=== PATIENT | male | born 1945 | race Caucasian/White ===

== ENCOUNTER → 2016-11-10 12:32 | Outpatient (CLI) | payer BC ==
[2016-05-26 07:01] VITALS: BMI 24.4
[~2016-11-10 12:32] MED LIST: ASPIRIN81 MG PO; B-6; BENICAR HCT 40-1 TAB PO; CARTIA XT240 MG PO; COREG 3.1253.125 MG; COSOPT EYE DROPS5 ML EACH EYE; FOLIC ACID1 MG; FUROSEMIDE40 MG PO; HYDROCODONE-APA1 TAB PO; MOBIC7.5 MG; NORMODYNE / TR100 MG PO; PERCOCET 5-3251 TAB; PERCOCET 5-3251 TAB PO; PLAVIX75 MG PO; PRAVACHOL80 MG; STOOL SOFTENER100 M1 PO; WELLBUTRIN SR150 MG; XALATAN 0.0052.5 ML EACH EYE; ZANAFLEX4 MG; ZANTAC300 MG PO
== END | disposition home or self-care (01) ==
LOC: D.RAD 10:15
DX: J90 Pleural effusion, not elsewhere classified (principal)

== ENCOUNTER → 2016-11-28 13:14 | Outpatient (CLI) | payer BC ==
[2016-05-26 07:01] VITALS: BMI 24.4
== END | disposition home or self-care (01) ==
LOC: D.MRI 13:14
DX: R41.82 Altered mental status, unspecified (principal); R42 Dizziness and giddiness; R55 Syncope and collapse; R53.83 Other fatigue

== ENCOUNTER → 2017-06-08 13:26 | Outpatient (CLI) | payer MEDICARE, OTHER ==
[2016-05-26 07:01] VITALS: BMI 24.4
== END | disposition home or self-care (01) ==
LOC: D.RT 05-25 13:00 → D.RAD 05-25 13:00 → D.RT 13:26
DX: J44.9 Chronic obstructive pulmonary disease, unspecified (principal)

== ENCOUNTER → 2017-11-29 13:27 | Outpatient (CLI) | payer MEDICARE, OTHER ==
[2016-05-26 07:01] VITALS: BMI 24.4
== END | disposition home or self-care (01) ==
LOC: D.RT 13:27
DX: J45.909 Unspecified asthma, uncomplicated (principal)

== ENCOUNTER → 2017-12-18 13:16 | Outpatient (CLI) | payer MEDICARE, OTHER ==
[2016-05-26 07:01] VITALS: BMI 24.4
== END | disposition home or self-care (01) ==
LOC: D.CT 13:16
DX: J90 Pleural effusion, not elsewhere classified (principal)

== ENCOUNTER 2018-04-04 18:36 | Inpatient (IN) | payer MEDICARE, OTHER ==
[~2018-04-04] VITALS: Ht 188 cm; Wt 92.7 kg
--- NOTE | ~2018-04-04 | OP ---
PATIENT NAME: IOANA MARTINI MEDICAL RECORD: [id number] :41 LOCATION:D.[facility] ADMISSION DATE:04/04/18 SURGEON: LISA MCCARTHY MD DATE OF OPERATION: 04/05/2018 PREOPERATIVE DIAGNOSIS: Displaced femoral neck fracture of the right hip. POSTOPERATIVE DIAGNOSIS: Displaced femoral neck fracture of the right hip. PROCEDURE: Bipolar endoprosthesis of the right hip for displaced femoral neck fracture. SURGEON: Lisa Mccarthy MD ANESTHESIA: General. INTRAOPERATIVE COMPLICATIONS: None. IMPLANTS USED: [place] Anato stem size 6, 130 neck angle and V40 hip system, bipolar head size 54, femoral head size 26 x -3. ESTIMATED BLOOD LOSS: 300 cc. OPERATIVE SUMMARY IN DETAIL: After obtaining the appropriate preoperative orthopedic surgery consent as well as anesthetic consultation, evaluation and clearance, the patient was brought to the operating room, placed on the operating table in supine position. After general laryngeal mask administered, the patient was placed in left lateral decubitus position. All pressure points were well padded to include down leg peroneal pad as well as axillary roll. The patient was held firmly to the operating table using the vacuum pack suction system. Right lower extremity and hip were then prepped and draped in routine sterile fashion. A curvilinear incision was made over the greater trochanter, taken down to the level of the IT band. The IT band was split in line with the fibers of the IT band to reveal gluteus medius and minimus. The patient had very robust gluteus medius. The inferior third of this was taken down and reflected anteriorly and saved for later reapproximation. The gluteus medius was treated likewise, hip capsule was split in a T-type fashion. Fracture hematoma was evacuated. Femoral neck cut was made using the Anato system femoral neck cutting guide. At this point, the very large femoral head was extracted from the acetabulum and all fragments were removed from the acetabulum with irrigation as well as manual examination. Attention was turned to the proximal femur. Serial and sequential reaming and broaching were done for the size 6 Anato hip stem, which was tamped into place. Trials were undertaken. It was felt that the -3 inner diameter is most appropriate. The -3 was articulated with the 45 bipolar head. This was then placed on the Gimenez taper tamped into place. The hip was reduced, taken through range of motion and found to be stable in all planes. Intraoperative radiograph showed good position and placement of all components without evidence of fracture and good leg length adventist. Wound was then copiously irrigated at this multiple points. Hip capsule was closed with #2 Ethibond. This was followed by #5 reapproximation of gluteus medius and minimus back to the greater trochanter in a transosseous fashion. Having completed this, the IT band was closed with #5 Ethibond followed by #1 Vicryl and skin carley. Sterile dressing was applied. The patient was awakened and taken to recovery room in stable condition. All final needle and sponge counts were correct. OPERATIVE REPORT [id number] IOANA MARTINI TRANSINT:[id number] Voice Confirmation ID: [id number] DOCUMENT ID: [id number] SHARI DONNELLY, LISA BARRIOS at 2042 CC: [id number] DICTATION DATE: 04/06/18 1403 FINANCE SPECIALIST: 04/06/18 1447 ADM IN [facility] [address] [place] [address]
[2018-04-04] MEDS ORDERED: AZOPT 1% OPHT D10 ML EACH EYE (19:01)
[2018-04-04] MEDS ORDERED: LEXAPRO20 MG (19:01)
[2018-04-04] MEDS ORDERED: XALATAN 0.0052.5 ML EACH EYE (19:02)
[2018-04-04] MEDS ORDERED: REGLAN10 MG (19:03)
[2018-04-04] MEDS ORDERED: OXYCONTIN15 MG PO (19:03)
[2018-04-04] MEDS ORDERED: SINGULAIR10 MG PO (19:03)
[2018-04-04] MEDS ORDERED: K-DUR20 MEQ PO (19:04)
[2018-04-04 20:12] LABS: BASOPHILS 0.3 % (0-2); EOSINOPHILS 2.4 % (0-7); HEMATOCRIT 38.4 % (42.0-54.0); HEMOGLOBIN 12.7 g/dL (13.5-17.5); IMMATURE GRANULOCYTES 0.3 % (0-5); LYMPHOCYTES 23.5 % (15-50); MCH 29.5 pg (26.0-34.0); MCHC 33.1 g/dL (31.0-37.0); MCV 89.1 fL (80.0-100.0); MEAN PLATELET VOLUME 10.3 fL (7.4-10.4); MONOCYTES 9.5 % (2-11); PLATELET COUNT 257 10x3/uL (130-400); RBC 4.31 10x6/uL (4.20-6.10); RDW 13.9 % (11.5-14.5); WBC 7.6 10x3/uL (4.8-10.8)
[2018-04-04 20:39] LABS: ALBUMIN 3.5 g/dL (3.4-5.0); ALKALINE PHOSPHATASE 84 U/L (46-116); ALT (SGPT) 18 U/L (10-68); BILIRUBIN - TOTAL 0.31 mg/dL (0.2-1.3); CALC OSMOLALITY 280 mosm/kg (275-300); CALCIUM 8.6 mg/dL (8.5-10.1); CARBON DIOXIDE 30.1 mmol/L (21.0-32.0); CHLORIDE - SERUM 103 mmol/L (98-107); CREATININE - SERUM 1.8 mg/dL (0.6-1.3); GLUCOSE 95 mg/dL (74-106); POTASSIUM - SERUM 3.9 mmol/L (3.5-5.1); PROTEIN - SERUM 7.6 g/dL (6.4-8.2); SODIUM 139 mmol/L (136-145); UREA NITROGEN 20 mg/dL (7-18); eGFR NON AFRICAN AMERICAN 39 mL/min (90-120)
[2018-04-04 20:46] LABS: CKMB 1.1 U/L (0.0-3.6)
[2018-04-04 20:48] LABS: TROPONIN-I < 0.017 ng/mL (0.000-0.060)
[2018-04-04 21:30] VITALS: BP 178/99
[2018-04-04 21:43] LABS: APTT 30.8 SECONDS (22.8-39.4); INR 1.07 (0.85-1.17); PROTIME 13.5 SECONDS (11.6-15.0)
[2018-04-04 21:44] LABS: APPEARANCE CLEAR (CLEAR); BILIRUBIN NEGATIVE (NEGATIVE); COLOR YELLOW (YELLOW); GLUCOSE NEGATIVE (NEGATIVE); KETONE NEGATIVE (NEGATIVE); NITRITE NEGATIVE (NEGATIVE); PROTEIN NEGATIVE (NEGATIVE); UROBILINOGEN NORMAL (NORMAL)
[2018-04-04 21:45] LABS: WHITE CELLS - URINE 0-5 /hpf (0-5)
[2018-04-04 21:46] LABS: BACTERIA FEW /hpf (NONE SEEN)
[2018-04-04 22:00] VITALS: BP 177/95
[2018-04-04 23:00] VITALS: BP 178/91
[2018-04-05 00:46] VITALS: BP 155/104; BMI 26.2
[2018-04-05 04:00] VITALS: BP 171/99
[2018-04-05 06:55] LABS: BASOPHILS 0.1 % (0-2); EOSINOPHILS 0.9 % (0-7); HEMATOCRIT 38.8 % (42.0-54.0); HEMOGLOBIN 12.7 g/dL (13.5-17.5); IMMATURE GRANULOCYTES 0.1 % (0-5); LYMPHOCYTES 10.5 % (15-50); MCH 29.3 pg (26.0-34.0); MCHC 32.7 g/dL (31.0-37.0); MCV 89.4 fL (80.0-100.0); MEAN PLATELET VOLUME 9.6 fL (7.4-10.4); MONOCYTES 10.1 % (2-11); NEUTROPHILS 78.3 % (40-80); RBC 4.34 10x6/uL (4.20-6.10); RDW 13.9 % (11.5-14.5)
[2018-04-05 07:05] LABS: ANION GAP 11.2 mmol/L (8-16); CALCIUM 8.4 mg/dL (8.5-10.1); CARBON DIOXIDE 28.5 mmol/L (21.0-32.0); CREATININE - SERUM 1.5 mg/dL (0.6-1.3); POTASSIUM - SERUM 3.7 mmol/L (3.5-5.1)
[2018-04-05 07:06] LABS: INR 1.05 (0.85-1.17); PROTIME 13.3 SECONDS (11.6-15.0)
[2018-04-05 07:08] LABS: PLATELET COUNT 204 10x3/uL (130-400); WBC 9.9 10x3/uL (4.8-10.8)
[2018-04-05 08:27] VITALS: Ht 188 cm; Wt 92.7 kg
[2018-04-05 09:08] VITALS: BP 187/103
[2018-04-05 12:26] VITALS: BP 187/111
[2018-04-05 19:19] VITALS: BP 168/98
[2018-04-05 20:00] VITALS: BP 142/80; BP 142/90
[2018-04-06] VITALS: BP 140/80; BP 142/76
[2018-04-06 04:00] VITALS: BP 125/72
[2018-04-06 06:39] LABS: HEMATOCRIT 32.9 % (42.0-54.0); HEMOGLOBIN 10.7 g/dL (13.5-17.5); MCH 28.9 pg (26.0-34.0); MCHC 32.5 g/dL (31.0-37.0); MCV 88.9 fL (80.0-100.0); MEAN PLATELET VOLUME 10.3 fL (7.4-10.4); RBC 3.7 10x6/uL (4.20-6.10); RDW 14.2 % (11.5-14.5)
[2018-04-06 09:03] VITALS: BP 125/83
[2018-04-06 09:49] LABS: ANION GAP 16.8 mmol/L (8-16); CALCIUM 7.8 mg/dL (8.5-10.1); CARBON DIOXIDE 21.8 mmol/L (21.0-32.0); CREATININE - SERUM 1.7 mg/dL (0.6-1.3); POTASSIUM - SERUM 3.6 mmol/L (3.5-5.1)
[2018-04-06 12:55] VITALS: BP 139/86
[2018-04-06 20:00] VITALS: BP 149/86
[2018-04-07 04:00] VITALS: BP 138/82
[2018-04-07 05:47] LABS: HEMATOCRIT 26.5 % (42.0-54.0); HEMOGLOBIN 8.6 g/dL (13.5-17.5); MCH 28.8 pg (26.0-34.0); MCHC 32.5 g/dL (31.0-37.0); MCV 88.6 fL (80.0-100.0); MEAN PLATELET VOLUME 10.4 fL (7.4-10.4); RBC 2.99 10x6/uL (4.20-6.10); RDW 14.4 % (11.5-14.5); WBC 7.4 10x3/uL (4.8-10.8)
[2018-04-07 06:51] VITALS: BP 123/66
[2018-04-07 20:00] VITALS: BP 150/73
[2018-04-08] VITALS: BP 147/74
[2018-04-08 04:00] VITALS: BP 141/74
[2018-04-08 11:28] VITALS: BP 156/84
[2018-04-08 15:43] VITALS: BP 128/69
[2018-04-08 21:04] VITALS: BP 152/81
[2018-04-09 04:00] VITALS: BP 153/85
[2018-04-09] MEDS ORDERED: ELIQUIS2.5 MG PO (08:06)
[2018-04-09] MEDS ORDERED: HYDROCODON-ACE1 EAC7 PO (08:07)
[2018-04-09 08:57] VITALS: BP 165/90
[2018-04-09 13:24] VITALS: BP 198/64
== END 2018-04-09 15:24 | DRG 470 ==
LOC: D.ER 18:36 → D.EDHOLD 21:53 → D.MS 21:53
PROVIDERS: Family Medicine; Orthopaedic Surgery
PROC: 0SRR0JZ Replacement of Right Hip Joint, Femoral Surface with Synthetic Substitute, Open Approach (ICD-10-PCS; principal; 2018-04-05 15:15)
DX: S72.051A Unspecified fracture of head of right femur, initial encounter for closed fracture (principal); I38 Endocarditis, valve unspecified; D62 Acute posthemorrhagic anemia; W19.XXXA Unspecified fall, initial encounter; I10 Essential (primary) hypertension; F32.9 Major depressive disorder, single episode, unspecified; F41.9 Anxiety disorder, unspecified; G89.29 Other chronic pain; G20 Parkinson's disease; I71.4 Abdominal aortic aneurysm, without rupture

== ENCOUNTER 2018-04-09 12:34 | Inpatient (IN) | payer MEDICARE, OTHER ==
[~2018-04-09] VITALS: Ht 182.9 cm; Wt 92.5 kg
--- NOTE | ~2018-04-09 | RHP ---
PATIENT: IOANA MARTINI MEDICAL RECORD: [id number] ACCOUNT: [id number] LOCATION:[facility]1112 : 43 ADMISSION DATE: 04/09/18 REHABILITATION HISTORY AND PHYSICAL EXAMINATION POST ADMISSION PHYSICIAN EXAMINATION DATE OF ADMISSION: 04/09/2018 ADMITTING DIAGNOSIS: Bipolar arthroplasty of the right hip for displaced femoral neck fracture. HISTORY OF PRESENT ILLNESS: The patient was admitted to inpatient rehab status post bipolar arthroplasty of the right hip for displaced femoral neck fracture. He is a 73-year-old gentleman of Dr. Castro who sees him for chronic pain therapy. The patient's reports the patient spends all day every day sleeping due to oversedation or analgesia therapy as a result of low back injury and fallen out of a deer stand. He definitely will require medical management during his stay for his pain. The patient was brought to the ER after a fall and subsequent right femoral neck fracture, was in need of surgery and cardiology was consulted for clearance prior to surgery. PAST MEDICAL HISTORY: He has got a past medical history of hypertension, AAA, history of coronary bypass grafting, depression, anxiety, renal failure, prostate cancer, arthritis. His echo last month revealed a left ventricular hypertrophy with preservation of his EF. His last intervention was in November 2015. He denies any anginal symptoms. His primary complaint is right hip pain. The patient reported he tripped and fell out of the porch while he was watering his plants. The patient's reported no loss of consciousness prior to the fall. He was completely independent with ADLs and mobility. He is currently total assist with ambulation, walking only 6 feet with a rolling walker, is mod to max assist to stand with barriers to include a need for DME and home health at discharge, mod to max assist for ADLs and will require intensive therapies to return to his home as close to his prior level of functioning as possible. He will require medical management from a physician to actively treat comorbidities including his pain during his stay. He is also requiring some O2 and will need to titrate that down on him and also telemetry will be provided during his stay. COMORBIDITIES: In this patient include coronary artery disease with a history of left bundle-branch block, valvular heart disease, hypertension, Parkinson's, depression, anxiety, renal failure, and prostate cancer. PAST MEDICAL HISTORY: Significant for hypertension, aneurysm to his aorta, bilateral pleural effusions, prostate cancer, skin cancer, depression, anxiety, stage III renal failure, arthritis, and chronic back pain. PAST SURGICAL HISTORY: Includes prostate surgery, coronary artery bypass grafting, back surgery, hernia repair, and stents and angioplasty. ALLERGIES: KEFLEX AND ZITHROMAX. CURRENT MEDICATIONS: Include Lexapro 10 mg daily, Pepcid 40 mg daily, Lasix 40 mg daily, diltiazem 240 mg daily, Pravachol 40 mg daily. He is on potassium 20 HISTORY AND PHYSICAL [id number] LIANET,IOANA E mEq b.i.d., OxyContin 10 mg b.i.d., Singulair 10 mg at bedtime, metoclopramide 10 mg b.i.d. and q.a.c. He is on Xalatan eye drops, labetalol 100 mg b.i.d., [place] 1 tab q. 4 hours p.r.n., Trusopt eyedrops t.i.d., and Eliquis 2.5 mg b.i.d. HABITS: No current alcohol or tobacco use. FAMILY HISTORY: Noncontributory. SOCIAL HISTORY: The patient hopes to return back home with his and get back to his prior level of functioning. REVIEW OF SYSTEMS: GENERAL: Does complain of weakness and fatigue. HEENT: Denies cold, cough, or congestion. CARDIOVASCULAR: He denies chest pain. PHYSICAL EXAMINATION: VITAL SIGNS: Stable, afebrile. GENERAL: A well-developed gentleman in no acute distress, alert upon exam. HEENT: Normocephalic and atraumatic. Mucosa moist. NECK: Supple. No lymphadenopathy. LUNGS: Clear at this time. HEART: Irregular rate and rhythm. ABDOMEN: Benign. EXTREMITIES: No clubbing, cyanosis or edema. His postop swelling appears normal. NEUROLOGIC: Does have noted weakness. LABORATORY DATA: His white count is 7.2, H&H 8 and 24 and platelet count is 212. Sodium 139, potassium 3.1, BUN and creatinine of 16 and 1.2, and blood sugar is noted to be 94. ASSESSMENT: This is a 73-year-old gentleman admitted to rehab with a working diagnosis of bipolar arthroplasty of the right hip secondary to a displaced femoral neck fracture. The patient has potential to make improvement. We instituted the following multidisciplinary therapies including but not limited to physical, occupational, respiratory, speech, nutritional services, prosthetics, and orthotics. Given his complex medical condition and risk for more complications, rehabilitation services cannot be provided at a low level of care such as a skilled nurse facility. PLAN: 1. Admit to [facility] rehab for inpatient therapy to include the following disciplines: A. Physical therapy to improve gait, all transfer skills and bed mobility to a modified independent level. B. Occupational therapy to a modified independent level. C. Case management to assist with discharge planning and placement options. D. Nutrition to assist with nutritional needs. E. Rehabilitation nursing to assist in monitoring the patient's underlying medical conditions and to assist with any type of bowel or bladder management. 2. The patient's current medication and medical care will be continued. HISTORY AND PHYSICAL [id number] IOANA MARTINI 3. The patient will be placed on standard fall precautions. 4. The patient's estimated length of stay is approximately 7-10 days. 5. We will go ahead and replace his potassium today. 6. I am going to go ahead and transfuse him. 7. We will manage his pain management during his stay, I am going to follow up in the a.m. and discuss with the care team on Monday. TRANSINT:[id number] Voice Confirmation ID: [id number] DOCUMENT ID: [id number] AGUSTIN notes whether there has been none or any medical/functional change since admission: - No change since preadmission screen. AGUSTIN attests patient continues to be appropriate for IRF: - Continues to be appropriate. FAINA SOTELO MD at 1845 CC: [id number] DICTATION DATE: 04/10/18 0807 MOLECULAR PATHOLOGIST: 04/10/18 0933 ADM IN [facility] [address] [place] [id number]
[~2018-04-09 12:34] MED LIST changes: +AZOPT 1% OPHT D10 ML EACH EYE; +ELIQUIS2.5 MG PO; +HYDROCODON-ACE1 EAC7 PO; +K-DUR20 MEQ PO; +LEXAPRO20 MG; +OXYCONTIN15 MG PO; +REGLAN10 MG; +SINGULAIR10 MG PO
[2018-04-09 16:19] VITALS: BP 156/85
[2018-04-09 18:00] VITALS: BP 156/85
[2018-04-10 07:06] LABS: CALCIUM 8.1 mg/dL (8.5-10.1); CARBON DIOXIDE 32.1 mmol/L (21.0-32.0); CREATININE - SERUM 1.2 mg/dL (0.6-1.3); POTASSIUM - SERUM 3.1 mmol/L (3.5-5.1)
[2018-04-10 07:09] LABS: BASOPHILS 0.1 % (0-2); EOSINOPHILS 4.4 % (0-7); HEMATOCRIT 24.5 % (42.0-54.0); HEMOGLOBIN 8.1 g/dL (13.5-17.5); IMMATURE GRANULOCYTES 0.1 % (0-5); LYMPHOCYTES 18.7 % (15-50); MCHC 33.1 g/dL (31.0-37.0); MCV 87.8 fL (80.0-100.0); MEAN PLATELET VOLUME 10.3 fL (7.4-10.4); MONOCYTES 13.7 % (2-11); RBC 2.79 10x6/uL (4.20-6.10); RDW 13.9 % (11.5-14.5); WBC 7.2 10x3/uL (4.8-10.8)
[2018-04-10 07:10] LABS: PLATELET COUNT 212 10x3/uL (130-400)
[2018-04-10 07:47] VITALS: BP 190/96
[2018-04-10 13:14] VITALS: BMI 27.6
[2018-04-10 18:24] VITALS: Ht 182.9 cm; Wt 92.5 kg
[2018-04-10 19:00] VITALS: BP 134/84
[2018-04-11 06:57] LABS: BASOPHILS 0.2 % (0-2); EOSINOPHILS 3.1 % (0-7); HEMATOCRIT 27.9 % (42.0-54.0); HEMOGLOBIN 9.4 g/dL (13.5-17.5); IMMATURE GRANULOCYTES 0.5 % (0-5); LYMPHOCYTES 23.6 % (15-50); MCH 28.9 pg (26.0-34.0); MCHC 33.7 g/dL (31.0-37.0); MEAN PLATELET VOLUME 10.5 fL (7.4-10.4); MONOCYTES 10.4 % (2-11); NEUTROPHILS 62.2 % (40-80); PLATELET COUNT 249 10x3/uL (130-400); RBC 3.25 10x6/uL (4.20-6.10); RDW 14.3 % (11.5-14.5)
[2018-04-11 07:12] LABS: MCV 85.8 fL (80.0-100.0); WBC 9.5 10x3/uL (4.8-10.8)
[2018-04-11 07:15] LABS: CALCIUM 8.3 mg/dL (8.5-10.1); CARBON DIOXIDE 30.1 mmol/L (21.0-32.0); CREATININE - SERUM 1.3 mg/dL (0.6-1.3); POTASSIUM - SERUM 3.1 mmol/L (3.5-5.1)
[2018-04-11 07:49] VITALS: BP 165/94
[2018-04-11 19:00] VITALS: BP 155/87
[2018-04-12 08:00] VITALS: BP 141/87
[2018-04-12 19:00] VITALS: BP 137/68
[2018-04-13 06:01] LABS: ANION GAP 8.3 mmol/L (8-16); CALCIUM 8.2 mg/dL (8.5-10.1); CARBON DIOXIDE 31.4 mmol/L (21.0-32.0); CREATININE - SERUM 1.4 mg/dL (0.6-1.3)
[2018-04-13 06:04] LABS: HEMATOCRIT 27.5 % (42.0-54.0); HEMOGLOBIN 9.3 g/dL (13.5-17.5); LYMPHOCYTES 19.1 % (15-50); MCH 29.4 pg (26.0-34.0); MCHC 33.8 g/dL (31.0-37.0); MEAN PLATELET VOLUME 9.4 fL (7.4-10.4); NEUTROPHILS 66.7 % (40-80); PLATELET COUNT 307 10x3/uL (130-400); POTASSIUM - SERUM 3.7 mmol/L (3.5-5.1); RBC 3.16 10x6/uL (4.20-6.10); RDW 14.6 % (11.5-14.5); WBC 8.8 10x3/uL (4.8-10.8)
[2018-04-13 08:00] VITALS: BP 154/87
[2018-04-13 19:00] VITALS: BP 161/84
[2018-04-14 07:25] VITALS: BP 162/81
[2018-04-15 07:10] VITALS: BP 165/84
[2018-04-15 19:21] VITALS: BP 162/86
[2018-04-16 05:47] LABS: BASOPHILS 0.3 % (0-2); EOSINOPHILS 4.6 % (0-7); HEMATOCRIT 31.4 % (42.0-54.0); HEMOGLOBIN 10.1 g/dL (13.5-17.5); IMMATURE GRANULOCYTES 0.9 % (0-5); LYMPHOCYTES 15.1 % (15-50); MCH 28.9 pg (26.0-34.0); MCHC 32.2 g/dL (31.0-37.0); MEAN PLATELET VOLUME 9.9 fL (7.4-10.4); MONOCYTES 8.3 % (2-11); NEUTROPHILS 70.8 % (40-80); PLATELET COUNT 251 10x3/uL (130-400); RBC 3.49 10x6/uL (4.20-6.10); RDW 14.8 % (11.5-14.5); WBC 10.1 10x3/uL (4.8-10.8)
[2018-04-16 05:49] LABS: ANION GAP 12.5 mmol/L (8-16); CALCIUM 8.6 mg/dL (8.5-10.1); CARBON DIOXIDE 29.2 mmol/L (21.0-32.0); CREATININE - SERUM 1.4 mg/dL (0.6-1.3); POTASSIUM - SERUM 3.7 mmol/L (3.5-5.1)
[2018-04-16 07:51] VITALS: BP 174/95
[2018-04-16 19:06] VITALS: BP 129/67
[2018-04-17 07:45] VITALS: BP 156/88
[2018-04-17 19:00] VITALS: BP 134/79
[2018-04-18 07:07] LABS: BASOPHILS 0.4 % (0-2); EOSINOPHILS 5.6 % (0-7); HEMOGLOBIN 9.7 g/dL (13.5-17.5); IMMATURE GRANULOCYTES 0.2 % (0-5); LYMPHOCYTES 20.5 % (15-50); MCH 28.9 pg (26.0-34.0); MCHC 32.3 g/dL (31.0-37.0); MCV 89.3 fL (80.0-100.0); MEAN PLATELET VOLUME 9.3 fL (7.4-10.4); MONOCYTES 9.3 % (2-11); RBC 3.36 10x6/uL (4.20-6.10); RDW 14.7 % (11.5-14.5); WBC 8.2 10x3/uL (4.8-10.8)
[2018-04-18 07:14] LABS: PLATELET COUNT 397 10x3/uL (130-400)
[2018-04-18 07:21] LABS: ANION GAP 9.6 mmol/L (8-16); CALCIUM 8.3 mg/dL (8.5-10.1); CARBON DIOXIDE 30.8 mmol/L (21.0-32.0); CREATININE - SERUM 1.5 mg/dL (0.6-1.3); POTASSIUM - SERUM 3.4 mmol/L (3.5-5.1)
[2018-04-18 07:51] VITALS: BP 146/85
[2018-04-18 20:59] VITALS: BP 155/89
[2018-04-19 08:24] VITALS: BP 158/99
[2018-04-19 19:00] VITALS: BP 156/85
[2018-04-20 07:05] LABS: HEMATOCRIT 30.8 % (42.0-54.0); HEMOGLOBIN 10.3 g/dL (13.5-17.5); LYMPHOCYTES 18.1 % (15-50); MCH 29.6 pg (26.0-34.0); MCHC 33.4 g/dL (31.0-37.0); MCV 88.5 fL (80.0-100.0); MEAN PLATELET VOLUME 8.6 fL (7.4-10.4); PLATELET COUNT 466 10x3/uL (130-400); RBC 3.48 10x6/uL (4.20-6.10); RDW 14.1 % (11.5-14.5); WBC 7.4 10x3/uL (4.8-10.8)
[2018-04-20 07:14] LABS: ANION GAP 10.4 mmol/L (8-16); CALCIUM 8.6 mg/dL (8.5-10.1); CARBON DIOXIDE 27.9 mmol/L (21.0-32.0); CREATININE - SERUM 1.3 mg/dL (0.6-1.3); POTASSIUM - SERUM 3.3 mmol/L (3.5-5.1)
[2018-04-20 08:00] VITALS: BP 172/93
[2018-04-20 19:00] VITALS: BP 169/90
[2018-04-21 11:22] VITALS: BP 144/97
[2018-04-21 21:37] VITALS: BP 159/95
[2018-04-22 15:53] VITALS: BP 180/107
[2018-04-22 20:06] VITALS: BP 149/88
[2018-04-23 07:48] VITALS: BP 151/63
[2018-04-23 07:52] VITALS: BP 167/95
[2018-04-23 19:00] VITALS: BP 155/93
[2018-04-24 08:57] VITALS: BP 170/98
[2018-04-24] MEDS ORDERED: POTASSIUM CHLO10 ME1 (14:33)
[2018-04-24] MEDS ORDERED: COLACE100 MG PO (14:35)
[2018-04-24] MEDS ORDERED: PEPCID40 MG PO (14:35)
[2018-04-24] MEDS ORDERED: ROBITUSSIN DM 110 ML PO (14:36)
[2018-04-24] MEDS ORDERED: ORA RELIEF177 ML PO (14:36)
[2018-04-24 18:07] VITALS: BP 145/90
[2018-04-24 19:00] VITALS: BP 145/90
== END 2018-04-24 21:39 | disposition home health service (06) | DRG 561 ==
LOC: D.REHAB 12:34
PROVIDERS: Emergency Medicine
DX: S72.001D Fracture of unspecified part of neck of right femur, subsequent encounter for closed fracture with routine healing (principal); Z47.1 Aftercare following joint replacement surgery; Z96.641 Presence of right artificial hip joint; I25.10 Atherosclerotic heart disease of native coronary artery without angina pectoris; I12.9 Hypertensive chronic kidney disease with stage 1 through stage 4 chronic kidney disease, or unspecified chronic kidney disease; N18.3 Chronic kidney disease, stage 3 (moderate); G20 Parkinson's disease; F41.8 Other specified anxiety disorders; C61 Malignant neoplasm of prostate; W17.89XD Other fall from one level to another, subsequent encounter

== ENCOUNTER 2018-04-24 21:40 | Inpatient (IN) | payer MEDICARE, OTHER ==
[~2018-04-24] VITALS: Ht 188 cm; Wt 92.5 kg
--- NOTE | ~2018-04-24 | CN ---
PATIENT NAME:IOANA MARTINI MEDICAL RECORD: [id number] : 41 LOCATION:D.[facility] ADMIT DATE: 04/24/18 ACCOUNT: [id number] CONSULTING PHYSICIAN: NAKITA ESQUIVEL MD REFERRING PHYSICIAN: LISA MCCARTHY MD DATE OF CONSULTATION: 04/25/2018 DATE OF ADMISSION: 04/25/2018 Medical Management This is a consultation from Dr. Mccarthy for medical management. HISTORY OF PRESENT ILLNESS: This is a 73-year-old white male who underwent right bipolar endoprosthesis for a right hip fracture on 04/05/2018. He was discharged to rehab. In the rehabilitation, he started having dark red/brown drainage from the surgical wound and he was discharged from rehab and admitted to inpatient for IV antibiotics and probable I&D. This patient is followed by Dr. Lopes for his medical problems. PAST MEDICAL HISTORY: He has a history of hypertension, coronary artery disease, aortic aneurysm, prostate cancer, skin cancer, reflux, depression, anxiety, parkinsonism, and glaucoma. PAST SURGICAL HISTORY: Prostate surgery, coronary artery bypass surgery, lumbar surgery, hernia repair, right bipolar endoprosthesis for right hip fracture last month. ALLERGIES: ZITHROMAX. FAMILY HISTORY: Unknown. HABITS: He is a former tobacco user. No alcohol or drugs. CURRENT MEDICATIONS: Eliquis 2.5 mg twice a day, diltiazem XT 240 mg once a day, labetalol 100 mg twice a day, pravastatin 80 mg once a day, Lexapro 20 mg once a day, [place] 5/325 q.4 hours p.r.n. pain, OxyContin 15 mg 1 p.o. q.12 hours, Lasix 40 mg a day, potassium 30 mEq 3 times a day, Robitussin DM p.r.n. cough, Azopt 1% ophthalmic drops 1 drop in each eye 3 times a day, Xalatan 0.005% ophthalmic drops 1 drop each eye at bedtime, Colace 100 mg twice a day, Pepcid 40 mg twice a day, Reglan 10 mg twice a day, Zantac 300 mg daily. PHYSICAL EXAMINATION: Today: VITAL SIGNS: Temperature 99.1, pulse 92, respirations 19, blood pressure 128/84, O2 sat 94%. GENERAL: He is awake, drowsy, does not appear in distress. HEENT: Unremarkable. NECK: Supple. HEART: Regular rate and rhythm. LUNGS: Fairly clear. ABDOMEN: Soft. EXTREMITIES: Examination of the right hip area; dressings in place. He has had some drainage from it. Otherwise no edema. LABORATORY DATA: Today urinalysis shows trace protein, 1+ blood, positive CONSULT REPORT [id number] LIANETIOANA nitrite, 2+ leukocyte esterase, 25-50 white blood cells, few bacteria. CBC with a white count 7800, hemoglobin 10.8, hematocrit 33.8, sodium 139, potassium 3.3, chloride 104, CO2 25.3, BUN 26, creatinine 1.4, glucose 88, calcium 8.5, sed rate last night is elevated at 50. C-reactive protein 2.9. X-ray of the right hip shows postsurgical changes. No acute osseous abnormality. ASSESSMENT: 1. Hypertension. 2. Heart disease. 3. Hematoma of the hip. PLAN: Antibiotics have been started. Cultures have been obtained. N.p.o. after midnight for possible surgery in the morning. The patient has been taken off Eliquis and is on heparin for deep venous thrombosis prophylaxis. I will monitor his blood pressure and other medical problems. Other tests and procedures as warranted. TRANSINT:[id number] Voice Confirmation ID: [id number] DOCUMENT ID: [id number] NAKITA ESQUIVEL MD at 0814 CC: [id number] DICTATION DATE: 04/25/182326 BRIEF WRITER: 04/26/18 0154 ADM IN [address] [id number] [place] [address]
[~2018-04-24 21:40] MED LIST changes: +COLACE100 MG PO; +ORA RELIEF177 ML PO; +PEPCID40 MG PO; +POTASSIUM CHLO10 ME1; +ROBITUSSIN DM 110 ML PO
[2018-04-25 00:16] LABS: HEMATOCRIT 31.1 % (42.0-54.0); HEMOGLOBIN 10.2 g/dL (13.5-17.5); MCH 28.9 pg (26.0-34.0); MCHC 32.8 g/dL (31.0-37.0); MCV 88.1 fL (80.0-100.0); MEAN PLATELET VOLUME 8.8 fL (7.4-10.4); PLATELET COUNT 475 10x3/uL (130-400); RBC 3.53 10x6/uL (4.20-6.10); RDW 14.2 % (11.5-14.5); WBC 7.2 10x3/uL (4.8-10.8)
[2018-04-25 00:21] LABS: C-REACTIVE PROTEIN 2.9 mg/dL (0.0-0.9); CALCIUM 8.1 mg/dL (8.5-10.1); CARBON DIOXIDE 27.9 mmol/L (21.0-32.0); CREATININE - SERUM 1.3 mg/dL (0.6-1.3); POTASSIUM - SERUM 3.9 mmol/L (3.5-5.1)
[2018-04-25 00:44] LABS: BASOPHILS 1 % (0-2); EOSINOPHILS 4 % (0-7); LYMPHOCYTES 32 % (15-50); MONOCYTES 5 % (2-11); NEUTROPHILS 55 % (40-80); PLATELET ESTIMATE INCREASED
[2018-04-25 00:58] VITALS: BP 135/83; BMI 26.2
[2018-04-25 01:20] LABS: ERYTHROCYTE SEDIMENTATION RATE 50 mm/hr (0-20)
[2018-04-25 04:00] VITALS: BP 149/84
[2018-04-25 07:10] LABS: HEMATOCRIT 33.8 % (42.0-54.0); HEMOGLOBIN 10.8 g/dL (13.5-17.5); MCH 28.6 pg (26.0-34.0); MCV 89.4 fL (80.0-100.0); MEAN PLATELET VOLUME 9.3 fL (7.4-10.4); RBC 3.78 10x6/uL (4.20-6.10); RDW 14.7 % (11.5-14.5); WBC 7.8 10x3/uL (4.8-10.8)
[2018-04-25 07:19] LABS: PLATELET COUNT 377 10x3/uL (130-400)
[2018-04-25 07:37] LABS: CALCIUM 8.5 mg/dL (8.5-10.1); CARBON DIOXIDE 25.3 mmol/L (21.0-32.0); CREATININE - SERUM 1.4 mg/dL (0.6-1.3)
[2018-04-25 07:43] LABS: POTASSIUM - SERUM 3.3 mmol/L (3.5-5.1)
[2018-04-25 07:58] LABS: LYMPHOCYTES 3 % (15-50); MONOCYTES 2 % (2-11); NEUTROPHILS 80 % (40-80); PLATELET ESTIMATE NORMAL
[2018-04-25 07:59] LABS: ANISOCYTOSIS OCC
[2018-04-25 09:56] VITALS: BP 150/89
[2018-04-25 13:28] VITALS: BP 128/84
[2018-04-25 14:52] VITALS: Ht 188 cm; Wt 92.5 kg
[2018-04-25 16:40] VITALS: BP 129/88
[2018-04-25 20:00] VITALS: BP 135/86
[2018-04-25 21:37] LABS: APPEARANCE HAZY (CLEAR); BILIRUBIN NEGATIVE (NEGATIVE); COLOR YELLOW (YELLOW); GLUCOSE NEGATIVE (NEGATIVE); KETONE NEGATIVE (NEGATIVE); NITRITE POSITIVE (NEGATIVE); PROTEIN TRACE mg/dL (NEGATIVE); SPECIFIC GRAVITY 1.015 (1.005-1.020); UROBILINOGEN NORMAL (NORMAL)
[2018-04-25 21:38] LABS: BACTERIA FEW /hpf (NONE SEEN); RED CELLS - URINE 0-5 /hpf (0-5); WHITE CELLS - URINE 25-50 /hpf (0-5)
[2018-04-26 07:03] LABS: HEMATOCRIT 33.6 % (42.0-54.0); MCH 28.8 pg (26.0-34.0); MCHC 32.7 g/dL (31.0-37.0); MEAN PLATELET VOLUME 9.2 fL (7.4-10.4); RBC 3.82 10x6/uL (4.20-6.10); RDW 14.6 % (11.5-14.5)
[2018-04-26 07:19] LABS: WBC 4.2 10x3/uL (4.8-10.8)
[2018-04-26 07:20] LABS: PLATELET COUNT 289 10x3/uL (130-400)
[2018-04-26 07:26] LABS: ANION GAP 14.6 mmol/L (8-16); CARBON DIOXIDE 23.1 mmol/L (21.0-32.0); CREATININE - SERUM 1.3 mg/dL (0.6-1.3); POTASSIUM - SERUM 3.7 mmol/L (3.5-5.1)
[2018-04-26] MEDS ORDERED: BACTRIM DS PO ×2 (08:02→09:46)
[2018-04-26 08:31] LABS: ANISOCYTOSIS OCC; EOSINOPHILS 7 % (0-7); LYMPHOCYTES 1 % (15-50); MONOCYTES 3 % (2-11); NEUTROPHILS 80 % (40-80); PLATELET ESTIMATE NORMAL; ROULEAUX OCC
== END 2018-04-26 14:27 | disposition home health service (06) | DRG 920 ==
LOC: D.MS 21:40
PROVIDERS: Orthopaedic Surgery
DX: M96.840 Postprocedural hematoma of a musculoskeletal structure following a musculoskeletal system procedure (principal); N39.0 Urinary tract infection, site not specified; Y83.8 Other surgical procedures as the cause of abnormal reaction of the patient, or of later complication, without mention of misadventure at the time of the procedure; I10 Essential (primary) hypertension; I25.10 Atherosclerotic heart disease of native coronary artery without angina pectoris; K21.9 Gastro-esophageal reflux disease without esophagitis; F32.9 Major depressive disorder, single episode, unspecified; F41.9 Anxiety disorder, unspecified; G20 Parkinson's disease; H40.9 Unspecified glaucoma; I71.9 Aortic aneurysm of unspecified site, without rupture; Z85.46 Personal history of malignant neoplasm of prostate; Z85.828 Personal history of other malignant neoplasm of skin; Z87.891 Personal history of nicotine dependence

== ENCOUNTER → 2018-06-04 13:18 | Outpatient (CLI) | payer MEDICARE, OTHER ==
[2018-04-25 14:52] VITALS: BMI 26.2
[~2018-06-04 13:18] MED LIST changes: +BACTRIM DS PO; -LEXAPRO20 MG; +LEXAPRO20 MG PO; -PRAVACHOL80 MG; +PRAVACHOL80 MG PO; +VIBRAMYCIN 100100 MG PO
[2018-06-11 18:08] LABS: AEROBE ID Final report (())
== END | disposition home or self-care (01) ==
LOC: D.LABREF 13:18
PROVIDERS: Orthopaedic Surgery
DX: S71.001A Unspecified open wound, right hip, initial encounter (principal); X58.XXXA Exposure to other specified factors, initial encounter

== ENCOUNTER → 2018-06-05 14:43 | Outpatient (CLI) | payer MEDICARE, OTHER ==
[2018-04-25 14:52] VITALS: BMI 26.2
[2018-06-05 15:18] LABS: BASOPHILS 0.2 % (0-2); EOSINOPHILS 1.7 % (0-7); HEMATOCRIT 36.5 % (42.0-54.0); HEMOGLOBIN 11.9 g/dL (13.5-17.5); IMMATURE GRANULOCYTES 0.1 % (0-5); LYMPHOCYTES 11.1 % (15-50); MCH 29.2 pg (26.0-34.0); MCHC 32.6 g/dL (31.0-37.0); MCV 89.5 fL (80.0-100.0); MEAN PLATELET VOLUME 9.9 fL (7.4-10.4); MONOCYTES 8.6 % (2-11); NEUTROPHILS 78.3 % (40-80); RBC 4.08 10x6/uL (4.20-6.10); RDW 14.6 % (11.5-14.5); WBC 9.4 10x3/uL (4.8-10.8)
[2018-06-05 15:26] LABS: PLATELET COUNT 350 10x3/uL (130-400)
[2018-06-05 15:41] LABS: ANION GAP 12.9 mmol/L (8-16); CALCIUM 8.9 mg/dL (8.5-10.1); CARBON DIOXIDE 27.9 mmol/L (21.0-32.0); CREATININE - SERUM 1.4 mg/dL (0.6-1.3); POTASSIUM - SERUM 3.8 mmol/L (3.5-5.1)
[2018-06-05 16:37] LABS: ERYTHROCYTE SEDIMENTATION RATE 55 mm/hr (0-20)
== END | disposition home or self-care (01) ==
LOC: D.LABREF 14:43
PROVIDERS: Orthopaedic Surgery
DX: S72.001D Fracture of unspecified part of neck of right femur, subsequent encounter for closed fracture with routine healing (principal); M96.840 Postprocedural hematoma of a musculoskeletal structure following a musculoskeletal system procedure

== ENCOUNTER 2018-06-08 17:18 | Emergency (ER) | payer MEDICARE, OTHER ==
[~2018-06-08] VITALS: Ht 188 cm; Wt 86.4 kg
[~2018-06-08 17:18] MED LIST changes: -VIBRAMYCIN 100100 MG PO
[2018-06-08 17:53] VITALS: Ht 188 cm; Wt 86.4 kg
[2018-06-08 19:38] VITALS: BP 132/77
== END 2018-06-08 19:38 | disposition home or self-care (01) ==
LOC: D.ER 17:18
DX: M96.842 Postprocedural seroma of a musculoskeletal structure following a musculoskeletal system procedure (principal); Z86.79 Personal history of other diseases of the circulatory system; Z98.890 Other specified postprocedural states; I12.9 Hypertensive chronic kidney disease with stage 1 through stage 4 chronic kidney disease, or unspecified chronic kidney disease; N18.3 Chronic kidney disease, stage 3 (moderate); K21.9 Gastro-esophageal reflux disease without esophagitis; Z85.46 Personal history of malignant neoplasm of prostate; Z85.828 Personal history of other malignant neoplasm of skin

== ENCOUNTER 2018-06-14 08:31 | Day surgery (SDC) | payer MEDICARE, OTHER ==
[~2018-06-14] VITALS: Ht 188 cm; Wt 90.7 kg
--- NOTE | ~2018-06-14 | MORECARE ---
CASE MANAGEMENT DISCHARGE SUMMARY PATIENT: IOANA MARTINI UNIT: [id number] ADM DATE: 06/14/18 AGE: 73 : 43 SEX: M ROOM/BED: AUTHOR: JO,DOC PHYSICIAN: REFERRING PHYSICIAN: LISA MCCARTHY MD DATE OF SERVICE: 06/25/18 Discharge Plan Patient Name: IOANA MARTINI Facility: [facility]:[place] : 1945 Planned Disposition: Home Health Service Anticipated Discharge Date: 06/15/18 Discharge Date: 06/15/2018 Expected LOS: 1 Initial Reviewer: [email or web address] Initial Review Date: 06/15/2018 Generated: 06/25/18 3:32 pm Comments DCP- Discharge Planning Updated by [email or web address]: Marva Olmstead on 06/15/18 2:[address] Patient Name: IOANA MARTINI Admission Status: Elective Accout number: [id number] Admission Date: 06-14-2018 : 1945 Admission Diagnosis: Attending: LISA MCCARTHY Current LOS: 1 Anticipated DC Date: 06-15-2018 Planned Disposition: Home Health Service Primary Insurance: MEDICARE A & B Discharge Planning Comments: CM met with patient and to assess discharge planning needs. Patient stated that he has all DME that he needs at home. He has a walker, wheelchair, and shower chair at home. His will be the one to drive him home. He will be discharging with a [facility] wound vac & [place] [facility] CM to follow and assist with dc planning Yarder Engineer: Marva Olmstead DCP- Discharge Planning Updated by [email or web address]: Jackie Ramsey on 06/15/18 9:[address] Received order for home wound vac. I messaged Jorje and clinical and order sent to [facility]. CM will continue to follow and assist with discharge planning/needs. DCPIA - Discharge Planning Initial Assessment Updated by [email or web address]: Marva Olmstead on 06/15/18 2:26 pm * Is the patient Alert and Oriented? Yes * How many steps to enter\exit or inside your home? * PCP JUAN J * Pharmacy [facility] [address] * Preadmission Environment Home with Family * ADLs Partial Dependent * Partial ADLs (Assistance needed) Ambulation * Equipment Rolling Walker Shower Chair Walker Wheelchair * List name and contact numbers for known caregivers / representatives who currently or will assist patient after discharge: URVASHI () [phone] * Verbal permission to speak to the caregivers and representatives has been obtained from the patient. Yes * Community resources currently utilized Home Health * Please name any agencies selected above. [facility] * Additional services required to return to the preadmission environment? Yes * Can the patient safely return to the preadmission environment? Yes * Has this patient been hospitalized within the prior 30 days at any hospital? No Last DP export: 06/15/18 2:52 p Patient Name: IOANA MARTINI Page [id number] at 1433 All edits/amendments must be made on the electronic document DICTATION DATE: 06/25/181431 METAL DIE FINISHER: TIARRA 06/25/181431 RPT#: [id number] DC DATE:06/15/18 STATUS: DEP [facility] [address] [place] [address] END OF REPORT
--- NOTE | ~2018-06-14 | MORECARE ---
CASE MANAGEMENT DISCHARGE SUMMARY PATIENT: IOANA MARTINI UNIT: [id number] ADM DATE: 06/14/18 AGE: 73 : 43 SEX: M ROOM/BED: D.2240 AUTHOR: JO,DOC PHYSICIAN: REFERRING PHYSICIAN: LISA MCCARTHY MD DATE OF SERVICE: 06/15/18 Discharge Plan Patient Name: IOANA MARTINI Facility: [facility]:[place] : 1945 Planned Disposition: Home Health Service Anticipated Discharge Date: 06/15/18 Discharge Date: Expected LOS: 1 Initial Reviewer: [email or web address] Initial Review Date: 06/15/2018 Generated: 06/15/18 3:52 pm Comments DCP- Discharge Planning Updated by [email or web address]: Marva Olmstead on 06/15/18 1:[address] Patient Name: IOANA MARTINI Admission Status: Elective Accout number: [id number] Admission Date: 06-14-2018 : 1945 Admission Diagnosis: Attending: LISA MCCARTHY Current LOS: 1 Anticipated DC Date: 06-15-2018 Planned Disposition: Home Health Service Primary Insurance: MEDICARE A & B Discharge Planning Comments: CM met with patient and to assess discharge planning needs. Patient stated that he has all DME that he needs at home. He has a walker, wheelchair, and shower chair at home. His will be the one to drive him home. He will be discharging with a [facility] wound vac & [place] [facility] CM to follow and assist with dc planning Steam Table Attendant: Marva Olmstead DCP- Discharge Planning Updated by [email or web address]: Jackie Ramsey on 06/15/18 8:[address] Received order for home wound vac. I messaged Jorje and clinical and order sent to [facility]. CM will continue to follow and assist with discharge planning/needs. DCPIA - Discharge Planning Initial Assessment Updated by [email or web address]: Marva Olmstead on 06/15/18 2:26 pm * Is the patient Alert and Oriented? Yes * How many steps to enter\exit or inside your home? * PCP JUAN J * Pharmacy [facility] [address] * Preadmission Environment Home with Family * ADLs Partial Dependent * Partial ADLs (Assistance needed) Ambulation * Equipment Rolling Walker Shower Chair Walker Wheelchair * List name and contact numbers for known caregivers / representatives who currently or will assist patient after discharge: URVASHI () [phone] * Verbal permission to speak to the caregivers and representatives has been obtained from the patient. Yes * Community resources currently utilized Home Health * Please name any agencies selected above. [facility] * Additional services required to return to the preadmission environment? Yes * Can the patient safely return to the preadmission environment? Yes * Has this patient been hospitalized within the prior 30 days at any hospital? No External Providers External Provider: [facility] Next Contact Date: Service Request Date: Service Type: Resolution: Reviewer: Comments: Last DP export: 06/15/18 1:40 p Patient Name: IOANA MARTINI Page 61057 at 1452 All edits/amendments must be made on the electronic document DICTATION DATE: 06/15/181451 SHAKE PACKER: TIARRA 06/15/181451 RPT#: [id number] DC DATE: STATUS: REG [facility] [address] [place] [address] END OF REPORT
--- NOTE | ~2018-06-14 | MORECARE ---
CASE MANAGEMENT DISCHARGE SUMMARY PATIENT: IOANA MARTINI UNIT: [id number] ADM DATE: 06/14/18 AGE: 73 : 43 SEX: M ROOM/BED: D.2240 AUTHOR: SUSHILA OSORIO PHYSICIAN: REFERRING PHYSICIAN: LISA MCCARTHY MD DATE OF SERVICE: 06/15/18 Discharge Plan Patient Name: IOANA MARTINI Facility: [facility]:[place] : 1945 Planned Disposition: Home Health Service Anticipated Discharge Date: 06/15/18 Discharge Date: Expected LOS: 1 Initial Reviewer: [email or web address] Initial Review Date: 06/15/2018 Generated: 06/15/18 3:28 pm Comments DCP- Discharge Planning Updated by [email or web address]: Jackie Ramsey on 06/15/18 8:[address] Received order for home wound vac. I messaged Jorje and clinical and order sent to [facility]. CM will continue to follow and assist with discharge planning/needs. DCPIA - Discharge Planning Initial Assessment Updated by [email or web address]: Marva Olmstead on 06/15/18 2:26 pm * Is the patient Alert and Oriented? Yes * How many steps to enter\exit or inside your home? * PCP JUAN J * Pharmacy [facility] * Preadmission Environment Home with Family * ADLs Partial Dependent * Partial ADLs (Assistance needed) Ambulation * Equipment Rolling Walker Shower Chair Walker Wheelchair * List name and contact numbers for known caregivers / representatives who currently or will assist patient after discharge: URVASHI () [phone] * Verbal permission to speak to the caregivers and representatives has been obtained from the patient. Yes * Community resources currently utilized Home Health * Please name any agencies selected above. [facility] * Additional services required to return to the preadmission environment? Yes * Can the patient safely return to the preadmission environment? Yes * Has this patient been hospitalized within the prior 30 days at any hospital? No Last DP export: 06/15/18 8:19 a Patient Name: IOANA MARTINI Page [id number] at 1428 All edits/amendments must be made on the electronic document DICTATION DATE: 06/15/181426 ALTO SINGER: TIARRA 06/15/181426 RPT#: [id number] DC DATE: STATUS: REG [facility] [address] [place] [address] END OF REPORT
--- NOTE | ~2018-06-14 | MORECARE ---
CASE MANAGEMENT DISCHARGE SUMMARY PATIENT: IOANA MARTINI UNIT: [id number] ADM DATE: 06/14/18 AGE: 73 : 41 SEX: M ROOM/BED: D.2240 AUTHOR: JO,DOC PHYSICIAN: REFERRING PHYSICIAN: LISA MCCARTHY MD DATE OF SERVICE: 06/15/18 Discharge Plan Patient Name: IOANA MARTINI Facility: [facility]:[place] : 1945 Planned Disposition: Home Health Service Anticipated Discharge Date: 06/15/18 Discharge Date: Expected LOS: 1 Initial Reviewer: [email or web address] Initial Review Date: 06/15/2018 Generated: 06/15/18 3:40 pm Comments DCP- Discharge Planning Updated by [email or web address]: Marva Olmstead on 06/15/18 1:[address] Patient Name: IOANA MARTINI Admission Status: Elective Accout number: [id number] Admission Date: 06-14-2018 : 1945 Admission Diagnosis: Attending: LISA MCCARTHY Current LOS: 1 Anticipated DC Date: 06-15-2018 Planned Disposition: Home Health Service Primary Insurance: MEDICARE A & B Discharge Planning Comments: CM met with patient and to assess discharge planning needs. Patient stated that he has all DME that he needs at home. He has a walker, wheelchair, and shower chair at home. His will be the one to drive him home. He will be discharging with a formerly [facility] wound vac & [facility] CM to follow and assist with dc planning Front Services Agent: Marva Olmstead DCP- Discharge Planning Updated by [email or web address]: Jackie Ramsey on 06/15/18 8:[address] Received order for home wound vac. I messaged Jorje and clinical and order sent to [facility]. CM will continue to follow and assist with discharge planning/needs. DCPIA - Discharge Planning Initial Assessment Updated by [email or web address]: Marva Olmstead on 06/15/18 2:26 pm * Is the patient Alert and Oriented? Yes * How many steps to enter\exit or inside your home? * PCP JUAN J * Pharmacy [facility] [place] * Preadmission Environment Home with Family * ADLs Partial Dependent * Partial ADLs (Assistance needed) Ambulation * Equipment Rolling Walker Shower Chair Walker Wheelchair * List name and contact numbers for known caregivers / representatives who currently or will assist patient after discharge: URVASHI () [phone] * Verbal permission to speak to the caregivers and representatives has been obtained from the patient. Yes * Community resources currently utilized Home Health * Please name any agencies selected above. [facility] * Additional services required to return to the preadmission environment? Yes * Can the patient safely return to the preadmission environment? Yes * Has this patient been hospitalized within the prior 30 days at any hospital? No Last DP export: 06/15/18 1:28 p Patient Name: IOANA MARTINI Page [id number] at 1440 All edits/amendments must be made on the electronic document DICTATION DATE: 06/15/181438 REEL OPERATOR: TIARRA 06/15/181438 RPT#: [id number] [place] DATE: STATUS: REG [facility] [address] [place] [address] END OF REPORT
--- NOTE | ~2018-06-14 | OP ---
PATIENT NAME: IOANA MARTINI MEDICAL RECORD: [id number] :41 LOCATION:D.OPS ADMISSION DATE: SURGEON: LISA MCCARTHY MD DATE OF OPERATION: 06/14/2018 PREOPERATIVE DIAGNOSIS: Superficial wound infection of the right hip. POSTOPERATIVE DIAGNOSIS: Superficial wound infection of the right hip. PROCEDURES: 1. Excisional debridement of superficial wound infection to include skin, subcutaneous tissue, portions of fat and fascia, approximately 180 cm in aggregate. 2. Application of wound VAC. SURGEON: Lisa Mccarthy MD ANESTHESIA: General. INTRAOPERATIVE COMPLICATIONS: None. SUMMARY OF PATHOLOGIC FINDINGS: The patient did indeed have a superficial wound where the areas of draining were connected underneath, the entire area was opened. OPERATIVE SUMMARY IN DETAIL: After obtaining the appropriate preoperative orthopedic surgery consent as well as anesthetic consultation, evaluation, and clearance, the patient was brought to the operating room and placed on the operating table in the supine position. After general laryngeal mask was administered, the patient was placed in a left lateral decubitus position. All pressure points were well-padded to include down leg peroneal pad as well as axillary roll. The patient was held firmly to the operating table using the vacuum pack suction system. Right lower extremity was then prepped and draped in routine sterile fashion. Cultures were taken and after exploration with a probe, it was determined that there was undermining, so the entire area between the inferior and superior area of drainage was opened to reveal what appeared to be a large hematoma, possibly infected, was then completely cleaned out with a combination of rongeurs, curettage as well as scalpel dissection. The removal did include skin, subcutaneous portions of fat and fascia. Copious irrigation was then followed by further removal and it was felt that all nonviable-appearing tissue and good bleeding tissue had been achieved. A silver sponge wound VAC was then placed at 125-mm of continuous suction at medium intensity. The patient was then awakened and taken to recovery in stable condition. All final needle and sponge counts were correct. TRANSINT:[id number] Voice Confirmation ID: [id number] DOCUMENT ID: [id number] OPERATIVE REPORT [id number] IOANA MARTINI MD, LISA BARRIOS at 1158 CC: [id number] DICTATION DATE: 06/22/18 1059 TYPEWRITER ALIGNER: 06/22/18 1137 [facility] [place] 06/15/18 [place] [id number] [facility], [facility]901
--- NOTE | ~2018-06-14 | MORECARE ---
CASE MANAGEMENT DISCHARGE SUMMARY PATIENT: IOANA MARTINI UNIT: [id number] ADM DATE: 06/14/18 AGE: 73 : 43 SEX: M ROOM/BED: D.2240 AUTHOR: SUSHILA OSORIO PHYSICIAN: REFERRING PHYSICIAN: LISA MCCARTHY MD DATE OF SERVICE: 06/15/18 Discharge Plan Patient Name: IOANA MARTINI [facility] [facility] 1945 Planned Disposition: Anticipated Discharge Date: 06/15/18 Discharge Date: Expected LOS: 1 Initial Reviewer: [email or web address] Initial Review Date: 06/15/2018 Generated: 06/15/18 10:06 am Patient Name: IOANA MARTINI Page [id number] at 0906 All edits/amendments must be made on the electronic document DICTATION DATE: 06/15/18905 HIV PREVENTION SPECIALIST: TIARRA 06/15/18905 RPT#: [id number] DC DATE: STATUS: REG [facility] [address] [place] [address] END OF REPORT
--- NOTE | ~2018-06-14 | MORECARE ---
CASE MANAGEMENT DISCHARGE SUMMARY PATIENT: IOANA MARTINI UNIT: [id number] ADM DATE: 06/14/18 AGE: 73 : 41 SEX: M ROOM/BED: D.2240 AUTHOR: SUSHLIA OSORIO PHYSICIAN: REFERRING PHYSICIAN: LISA MCCARTHY MD DATE OF SERVICE: 06/15/18 Discharge Plan Patient Name: IOANA MARTINI [facility] [facility] 1945 Planned Disposition: Anticipated Discharge Date: 06/15/18 Discharge Date: Expected LOS: 1 Initial Reviewer: [email or web address] Initial Review Date: 06/15/2018 Generated: 06/15/18 10:19 am Comments DCP- Discharge Planning Updated by [email or web address]: Jackie Ramsey on 06/15/18 8:[address] Received order for home wound vac. I messaged Jorje and clinical and order sent to [facility]. CM will continue to follow and assist with discharge planning/needs. External Providers External Provider: [facility] [employer] Next Contact Date: Service Request Date: Service Type: Resolution: Reviewer: Comments: Last DP export: 06/15/18 8:06 a Patient Name: IOANA MARTINI Page 25903 at 0920 All edits/amendments must be made on the electronic document DICTATION DATE: 06/15/18918 HEMODIALYSIS RN: TIARRA 06/15/18918 RPT#: [id number] DC DATE: STATUS: REG [facility] [address] [place] [address] END OF REPORT
[2018-06-14 08:57] LABS: ANION GAP 12.1 mmol/L (8-16); CALCIUM 8.8 mg/dL (8.5-10.1); CARBON DIOXIDE 26.7 mmol/L (21.0-32.0); CREATININE - SERUM 1.7 mg/dL (0.6-1.3); POTASSIUM - SERUM 3.8 mmol/L (3.5-5.1)
[2018-06-14 08:58] LABS: BASOPHILS 0.4 % (0-2); EOSINOPHILS 3.8 % (0-7); HEMOGLOBIN 11.1 g/dL (13.5-17.5); IMMATURE GRANULOCYTES 0.3 % (0-5); LYMPHOCYTES 16.9 % (15-50); MCHC 32.6 g/dL (31.0-37.0); MCV 88.8 fL (80.0-100.0); MONOCYTES 9.6 % (2-11); PLATELET COUNT 352 10x3/uL (130-400); RBC 3.83 10x6/uL (4.20-6.10); RDW 14.7 % (11.5-14.5); WBC 7.3 10x3/uL (4.8-10.8)
[2018-06-14 09:02] LABS: INR 1.07 (0.85-1.17); PROTIME 13.5 SECONDS (11.6-15.0)
[2018-06-14 09:03] LABS: APTT 30.4 SECONDS (22.8-39.4)
[2018-06-14 10:13] VITALS: BP 142/82; BMI 25.1
[2018-06-14 16:05] VITALS: BP 149/77; BMI 25.7
[2018-06-14 16:13] VITALS: BP 149/77
[2018-06-14 21:35] VITALS: BP 161/72
[2018-06-15 05:12] VITALS: BP 146/76
[2018-06-15 06:22] LABS: HEMATOCRIT 32.3 % (42.0-54.0); HEMOGLOBIN 10.4 g/dL (13.5-17.5); MCH 28.9 pg (26.0-34.0); MCHC 32.2 g/dL (31.0-37.0); MCV 89.7 fL (80.0-100.0); MEAN PLATELET VOLUME 9.6 fL (7.4-10.4); RBC 3.6 10x6/uL (4.20-6.10); RDW 14.9 % (11.5-14.5); WBC 7.6 10x3/uL (4.8-10.8)
[2018-06-15 08:29] VITALS: BP 150/97
[2018-06-15 12:21] VITALS: BP 146/74
[2018-06-15 13:02] VITALS: Ht 188 cm; Wt 90.7 kg
[2018-06-15] MEDS ORDERED: VIBRAMYCIN 100100 MG PO (13:14)
== END 2018-06-15 17:00 | disposition home or self-care (01) ==
LOC: D.MS 08:31 → D.OPS 08:31 → D.PAN 12:45 → D.OPS 12:45 → D.MS 15:35 → D.OPS 06-15 17:00
PROVIDERS: Anesthesiology; Orthopaedic Surgery
DX: T81.41XA Infection following a procedure, superficial incisional surgical site, initial encounter (principal); I10 Essential (primary) hypertension; I25.10 Atherosclerotic heart disease of native coronary artery without angina pectoris; Z95.1 Presence of aortocoronary bypass graft; Z95.5 Presence of coronary angioplasty implant and graft; Z87.891 Personal history of nicotine dependence; Z88.1 Allergy status to other antibiotic agents; Z79.899 Other long term (current) drug therapy; Z01.812 Encounter for preprocedural laboratory examination

== ENCOUNTER → 2018-12-25 11:16 | Outpatient (CLI) | payer MEDICARE, OTHER ==
[2018-06-15 13:02] VITALS: BMI 25.6
[~2018-12-25 11:16] MED LIST changes: +VIBRAMYCIN 100100 MG PO
== END | disposition home or self-care (01) ==
LOC: D.RT 11-05 14:00 → D.RAD 11-05 15:00 → D.RT 11:00
PROVIDERS: ATTEND Internal Medicine Pulmonary Disease
DX: J45.909 Unspecified asthma, uncomplicated (principal); I50.9 Heart failure, unspecified

== ENCOUNTER → 2019-03-04 13:17 | Outpatient (CLI) | payer MEDICARE, OTHER ==
[2018-06-15 13:02] VITALS: BMI 25.6
== END | disposition home or self-care (01) ==
LOC: D.MRI 13:17
PROVIDERS: ATTEND Orthopaedic Surgery
DX: M54.16 Radiculopathy, lumbar region (principal)

== ENCOUNTER → 2019-07-19 10:01 | Outpatient (CLI) | payer MEDICARE, OTHER ==
[2018-06-15 13:02] VITALS: BMI 25.6
== END | disposition home or self-care (01) ==
LOC: D.CT 10:01
PROVIDERS: ATTEND Internal Medicine Cardiovascular Disease
DX: J91.8 Pleural effusion in other conditions classified elsewhere (principal)

== ENCOUNTER → 2019-09-13 09:37 | Outpatient (CLI) | payer MEDICARE, OTHER ==
[2018-06-15 13:02] VITALS: BMI 25.6
--- NOTE | 2019-09-16 10:09 | EC ---
PATIENT:IOANA MARTINI DATE OF SERVICE: 09/13/19 SEX: M MEDICAL RECORD: [id number] DATE OF : [birth year] [facility] AGE OF PATIENT: 74 ADMISSION DATE: 09/13/19 REFERRING PHYSICIAN: INTERPRETING PHYSICIAN: BROCK ORTA MD ECHOCARDIOGRAM REPORT ECHO CHARGES 4 ECHO COMPLETE Date: 09/13/19 CLINICAL DIAGNOSIS: PLEURAL EFFUSION ECHOCARDIOGRAPHIC MEASUREMENTS (adult normal given) AC root (d.<3.7cm) 4.2 cm LV Septum d (<1.2 cm> 0.8 cm Valve Excursion 1.7 cm LV Septum (systole) 1.3 cm Left Atria (s.<4.0cm> 3.6 cm LVPW d(<1.2cm) 0.8 cm RV (d.<2.3cm) 3.8 cm LVPW (sytole) 1.3 cm LV diastole(<5.6CM) 6.5 cm MV E-F(>70mm/sec) cm LV systole 4.6 cm LVOT Diameter 1.9 cm MV exc.(>10mm) cm Est.ejection fraction (50-75%) % DOPPLER: LVIT cm/sec A 88 cm/sec E 58 cm/sec LA cm/sec RVSP 23.6 mmHg LVOT 94 cm/sec AOP1/2T m/s Asc. Ao 106 cm/sec RVOT 63 cm/sec RA cm/sec PA 94 cm/sec AV Gradient Peak 4.5 mmHg AV Mean 2.6 mmHg AV Area 3.0 cm MV Gradient Peak 3.5 mmHg MV Mean 1.5 mmHg MV Area cm COMMENTS: Drum Loader And Unloader: Bakari [facility] Typo Machine Operator: 1 Dr. Orta TAPE# PACS Pericardial Effusion N DATE OF SERVICE: Echocardiogram FINDINGS: 1. Left ventricular chamber size is mildly dilated. Left ventricular systolic function is moderately reduced at 30%. 2. Left atrium, right atrium, and right ventricle chamber sizes are within normal limits. 3. Valvular structures have normal structure and motion. ECHOCARDIOGRAM REPORT [id number] IOANA MARTINI 4. Doppler interrogation only reveals trace tricuspid regurgitation, no other valvular insufficiency or stenosis. 5. No evidence of pericardial effusion or left ventricular thrombus. TRANSINT:[id number] Voice Confirmation ID: [id number] DOCUMENT ID: [id number] BROCK ORTA MD at 1009 CC: [id number] DICTATION DATE: 09/13/19 1518 MACHINE TRY OUT SETTER: 09/13/19 2305 DEP CLI 09/13/19 [place] [id number] [place] [address]
== END | disposition home or self-care (01) ==
LOC: D.ECHO 09:37
PROVIDERS: ATTEND Internal Medicine Cardiovascular Disease
DX: J90 Pleural effusion, not elsewhere classified (principal)

== ENCOUNTER → 2019-12-27 15:04 | Outpatient (CLI) | payer MEDICARE, OTHER ==
[2018-06-15 13:02] VITALS: BMI 25.6
== END | disposition home or self-care (01) ==
LOC: D.RAD 15:04
PROVIDERS: ATTEND Internal Medicine Cardiovascular Disease
DX: J91.8 Pleural effusion in other conditions classified elsewhere (principal)

== ENCOUNTER → 2020-01-13 20:07 | Outpatient (CLI) | payer MEDICARE, OTHER ==
[2018-06-15 13:02] VITALS: BMI 25.6
== END | disposition home or self-care (01) ==
LOC: D.LABREF 20:07
PROVIDERS: ATTEND Surgery
DX: L98.9 Disorder of the skin and subcutaneous tissue, unspecified (principal)

== ENCOUNTER → 2020-04-02 12:30 | Outpatient (CLI) | payer MEDICARE, OTHER ==
[2018-06-15 13:02] VITALS: BMI 25.6
== END | disposition home or self-care (01) ==
LOC: D.US 12:30
PROVIDERS: ATTEND Surgery
DX: R10.11 Right upper quadrant pain (principal)

== ENCOUNTER → 2020-04-24 12:36 | Outpatient (CLI) | payer MEDICARE, OTHER ==
[2018-06-15 13:02] VITALS: BMI 25.6
== END | disposition home or self-care (01) ==
LOC: D.NM 12:36
PROVIDERS: ATTEND Surgery
DX: R10.13 Epigastric pain (principal)